=== PATIENT | female | born 1950 | race Caucasian/White ===

== ENCOUNTER 2019-01-18 12:52 | Inpatient (IN) ==
[2019-01-18] MEDS ORDERED: Sod Chloride 0.9% Inj 1,000 ML IV.SIG ONE (13:08)
[2019-01-18] MEDS ORDERED: Morphine Inj 4 MG/ML Vial IV.PUSH ONE (13:08)
--- NOTE | 2019-01-18 13:18 | ED ---
HPI General Chief Complaint: Extremity Injury, Lower Stated Complaint: Ankle Injury Time Seen by Provider: 01/18/19 13:05 Source: patient and EMS Mode of arrival: EMS Limitations: no limitations History of Present Illness HPI Narrative: Patient is a 68-year-old female presenting to the emerge department for evaluation of left lower leg injury. Patient was walking down steps when she lost her footing, she tripped twisting her ankle and falling down 2 steps. She reports hitting her head but denies any loss of consciousness. Patient arrives via EMS. She reports 8 out of 10 pain, constant , aching, throbbing. Somewhat alleviated with splinting. She denies any headache, dizziness, visual changes, nausea, vomiting. Patient states that she had no chest pain, dizziness or lightheadedness prior to falling. Past medical history significant for depression, she is not on any blood thinners. MD complaint: Reports ankle injury and fall Onset (ago): minute(s) Injury: Left: ankle Type of Injury: Reports unknown Place: Reports home Severity: severe Severity scale (1-10): 8 Relieving factors: immobilization Exacerbating factors: movement Context: Reports fall Associated symptoms: Reports snap/pop sensation, swelling and unable to bear weight Other symptoms: Reports none Treatments prior to arrival: Reports splint Related Data Home Medications Medication Instructions Recorded Confirmed escitalopram oxalate [Lexapro] 10 mg PO DAILY 01/18/19 01/18/19 Allergies Allergy/AdvReac Type Severity Reaction Status Date / Time No Known Allergies Allergy Verified 01/18/19 13:05 Review of Systems ROS: all other systems reviewed are negative PMFSH History History 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 Presenting in no acute distress. SKIN: Focused skin assessment warm/dry. HEAD: Atraumatic. Normocephalic. EYES: Pupils equal and round. No scleral icterus. No injection or drainage. ENT: No nasal bleeding or discharge. Mucous membranes pink and moist. NECK: Trachea midline. No JVD. CARDIOVASCULAR: Regular rate and rhythm. No murmur appreciated. RESPIRATORY: No accessory muscle use. Clear to auscultation. Breath sounds equal bilaterally. GASTROINTESTINAL: Abdomen soft, non-tender, nondistended. Hepatic and splenic margins not palpable. MUSCULOSKELETAL: Obvious deformity to left ankle, ecchymosis and mild edema noted to the medial aspect of the left ankle. 2+ dorsalis pedal pulse, brisk less than 3-second capillary refill, sensation is intact. Patient is able to move her toes. NEUROLOGICAL: Awake and alert. No obvious cranial nerve deficits. Motor grossly within normal limits. Normal speech. PSYCHIATRIC: Appropriate mood and affect; insight and judgment normal. Procedures Orthopedic Fracture Reduction Left ankle fracture dislocation: Time Out Performed: Yes Side: left Fracture Reduction Location: other (Left ankle lateral fracture dislocation) Analgesia: procedural sedation Technique: direct manipulation Post-Reduction Neuro Exam: intact Post-Reduction Vascular Exam: intact Splint Applied: Yes Patient Tolerated Procedure: well Course Initial Documented Vital Signs Temperature 98.7 F 01/18/19 13:03 Pulse Rate 56 L 01/18/19 13:03 Respiratory Rate 20 01/18/19 13:03 Blood Pressure 154/89 H 01/18/19 13:03 Pulse Oximetry 98 01/18/19 13:03 Last Documented Vital Signs Temperature 98.7 F 01/18/19 13:03 Pulse Rate 54 L 01/18/19 17:48 Respiratory Rate 18 01/18/19 17:48 Blood Pressure 122/58 L 01/18/19 17:48 Pulse Oximetry 95 01/18/19 17:48 Medical Decision Making TEREZA Attestation TEREZA supervised visit: Yes Attestation: I, Dr. Colmenares, have reviewed the advance practice practitioner's documentation and am in agreement, met with the patient face to face, made the diagnosis, and the medical decision making was done by me. See her note for further details. This is a 68-year-old female who is from [place], here for the winter months , here by ambulance for evaluation of significant left ankle pain after a slip and fall down a couple of steps. The patient struck the front of her head, however denies loss of consciousness. She mainly has pain in her left ankle. She is obvious deformity of the left ankle. There are no open wounds other that a superficial abrasion over the medial ankle where there is ecchymosis. The left foot and lower extremity are neurovascularly intact, and all compartments in the LLE are supple. There are no other obvious injuries on exam. Left ankle x-ray shows laterally displaced left ankle fracture/ dislocation that appears to be a trimalleolar fracture. Patient was consented for procedural sedation for closed reduction of this fracture dislocation by me. Sedation was performed by Dr. Long, and closed reduction of this fracture was performed by me. See procedure notes. Left foot is neurovascularly intact status post reduction, and Combs splint was placed. Postreduction x-rays ordered, and the TEREZA will contact the on-call orthopedic surgeon and will follow their recommendations. [facility] Narrative Medical decision making narrative: Patient is a 68-year-old female presenting with an obvious deformity to her left ankle after a trip and fall. Patient is neurovascularly intact, has no focal deficits on exam. Labs and imaging ordered and pending. Morphine and Zofran ordered for pain control. is at bedside. IV access was established, patient was placed on library monitor continuous pulse oximetry. Labs reviewed, no acute findings. The left ankle shows comminuted distal tibia and fibula fracture with dislocation. Please see my attending physician's dictation for procedural sedation and reduction. Postreduction films ordered. On-call orthopedic surgeon paged for recommendations. Per Dr. Wellington's GROUP EXERCISE CLASS INSTRUCTOR patient will be kept n.p.o. after midnight, he requested a CT scan of the ankle, likely OR tomorrow. Initially discussed admit with hospitalist, hospitalist recommended patient be admitted to orthopedic service. Which once multiple attempts to contact Orth O were unsuccessful. Patient was ultimately admitted to Dr. River. Medical Screen Exam Complete: Yes Emergency Medical Condition: Yes Differential Diagnosis Differential Diagnosis: Fracture versus sprain versus strain versus dislocation versus other Lab Data Lab results reviewed: Yes I reviewed the patient's lab results. Result diagrams: 01/18/19 13:15 01/18/19 13:15 Lab Results 01/18/19 01/18/19 01/18/19 Range/Units 13:15 13:15 13:15 WBC 9.0 (4.0-11.0) th/mm3 RBC 4.28 (4.00-5.30) mil/mm3 Hgb 14.0 (11.6-15.3) gm/dL Hct 40.4 (35.0-46.0) % MCV 94.5 (80.0-100.0) fL MCH 32.7 (27.0-34.0) pg MCHC 34.6 (32.0-36.0) % RDW 12.3 (11.6-17.2) % Plt Count 293 (150-450) th/mm3 MPV 7.4 (7.0-11.0) fL Neut % (Auto) 37.4 (16.0-70.0) % Lymph % (Auto) 43.9 (9.0-44.0) % [place] % (Auto) 9.4 H (0.0-8.0) % Eos % (Auto) 8.8 H (0.0-4.0) % Baso % (Auto) 0.5 (0.0-2.0) % Neut # (Auto) 3.4 (1.8-7.7) th/mm3 Lymph # (Auto) 4.0 (1.0-4.8) th/mm3 [place] # (Auto) 0.8 (0.0-0.9) th/mm3 Eos # (Auto) 0.8 H (0.0-0.4) th/mm3 Baso # (Auto) 0.0 (0.0-0.2) th/mm3 WBC Differential . Differential Comment Auto diff final PT 10.1 (9.8-11.6) sec INR 1.0 Ratio APTT 25.4 (23.4-31.7) sec Sodium 140 (136-145) meq/L Potassium 3.7 (3.5-5.1) meq/L Chloride 106 (98-107) meq/L Carbon Dioxide 28.6 (21.0-32.0) meq/L Anion Gap 5 (5-15) meq/L BUN 14 (7-18) mg/dL Creatinine 0.73 (0.50-1.00) mg/dL Estimated GFR 79 L (>89) mL/min Random Glucose 96 (74-106) mg/dL Calcium 8.8 (8.5-10.1) mg/dL Total Bilirubin 0.4 (0.2-1.0) mg/dL AST 25 (15-37) U/L ALT 38 (10-53) U/L Alkaline Phosphatase 69 (45-117) U/L Total Protein 7.7 (6.4-8.2) g/dL Albumin 3.8 (3.4-5.0) g/dL Imaging Data Radiologist's impression: Ankle X-Ray 01/18/19 13:08 CONCLUSION: Oblique fracture of the distal tibia with anterior medial dislocation of the majority articulating surface from the talus. Oblique angulated fracture involving the distal fibular metadiaphyseal region. Additional fracture fragment associated with the medial malleolus Head CT 01/18/19 13:08 CONCLUSION: No acute abnormality is identified. . . Tibia/Fibula X-Ray 01/18/19 13:08 CONCLUSION: 1. Comminuted fracture dislocation of the distal tibia and fibula, as above. Ankle X-Ray 01/18/19 15:06 CONCLUSION: 1. Status post reduction and casting of distal tibial and fibular fractures, as above. Ankle CT 01/18/19 16:37 CONCLUSION: 1. Oblique comminuted fracture of the distal fibular metaphysis with 9 mm of posterior displacement of the largest fragment. 2. There are oblique mildly comminuted fractures of the distal tibia involving the posterior malleolus and medial malleolus, as above. There are a few tiny fracture fragments in the medial tibiotalar joint likely related to the medial malleolus fracture. 3. Diffuse subcutaneous edema and soft tissue swelling. No displaced tendons are identified. Discharge Plan Discharge Disposition Patient Disposition: ED Admit(ED Internal Use Only) Discharge Condition Condition: Stable Discharge Order Discharge Orders: ED Use Only Admit Order (Routine); Ordered 01/18/19 Ordered By: Jessica Ghotra Discharge Details Diagnosis: Ankle fracture Physicians Team ED Provider: Javon Colmenares ED Midlevel Provider: Jessica Ghotra Attending Provider: Vlad Yates Other Providers: Raul Wellington Status ED Status: Admitted Patient
[2019-01-18 13:38] LABS: Baso % (Auto) 0.5 % (0.0-2.0); Eos # (Auto) 0.8 th/mm3 (0.0-0.4); Eos % (Auto) 8.8 % (0.0-4.0); Hematocrit 40.4 % (35.0-46.0); Lymph % (Auto) 43.9 % (9.0-44.0); Mean Corpuscular HGB Conc 34.6 % (32.0-36.0); Mean Corpuscular Hemoglobin 32.7 pg (27.0-34.0); Mean Corpuscular Volume 94.5 fL (80.0-100.0); Mean Platelet Volume 7.4 fL (7.0-11.0); Mono # (Auto) 0.8 th/mm3 (0.0-0.9); Mono % (Auto) 9.4 % (0.0-8.0); Neut # (Auto) 3.4 th/mm3 (1.8-7.7); Neut % (Auto) 37.4 % (16.0-70.0); Platelet Count 293 th/mm3 (150-450); Red Blood Count 4.28 mil/mm3 (4.00-5.30); Red Cell Distribution Width 12.3 % (11.6-17.2)
[2019-01-18 13:47] LABS: Activated Partial Thrombo Time 25.4 sec (23.4-31.7); Prothrombin Time 10.1 sec (9.8-11.6)
[2019-01-18 13:56] LABS: Alanine Aminotransferase 38 U/L (10-53); Albumin 3.8 g/dL (3.4-5.0); Anion Gap 5 meq/L (5-15); Aspartate Aminotransferase 25 U/L (15-37); Blood Urea Nitrogen 14 mg/dL (7-18); Calcium 8.8 mg/dL (8.5-10.1); Carbon Dioxide 28.6 meq/L (21.0-32.0); Chloride 106 meq/L (98-107); Glomerular Filtration Rate 79 mL/min (>89); Glucose,Random 96 mg/dL (74-106); Potassium 3.7 meq/L (3.5-5.1); Sodium 140 meq/L (136-145)
[2019-01-18 13:57] LABS: Alkaline Phosphatase 69 U/L (45-117); Total Protein 7.7 g/dL (6.4-8.2)
--- NOTE | 2019-01-18 14:43 | XR ---
EXAM DATE: 01/18/2019 2:28 PM EST AGE/SEX: 68 years / Female INDICATIONS: Left leg pain, fall down stairs. CLINICAL DATA: This is the patient's initial encounter. Patient reports that signs and symptoms have been present for 1 day and indicates a pain score of 10/10. MEDICAL/SURGICAL HISTORY: None. None. [place] [facility] [place]. . FINDINGS: Fracture of the medial malleolus and posterior malleolus. There is also fracture of the distal fibula . There is near complete shaft length medial dislocation of the distal tibia and fibula. Talar dome a ppears grossly intact. Diffuse soft tissue swelling. No radiopaque foreign bodies. CONCLUSION: 1. Comminuted fracture dislocation of the distal tibia and fibula, as above. Electronically signed by: Reji Martinez MD Board Certified Radiologist 01/18/2019 2:42 PM EST
--- NOTE | 2019-01-18 14:58 | XR ---
EXAM DATE: 01/18/2019 2:29 PM EST AGE/SEX: 68 years / Female INDICATIONS: Left ankle pain, fall down stairs. CLINICAL DATA: This is the patient's initial encounter. Patient reports that signs and symptoms have been present for 1 day and indicates a pain score of 10/10. MEDICAL/SURGICAL HISTORY: None. None. COMPARISON: No prior exams available for comparison. FINDINGS: There is a markedly comminuted fracture involving the distal tibia and the fibula. There is marked me dial angulation of both the tibial and fibular fractures. The fibular fracture is obliquely oriented. The majority of the tibial articulating surface is medially and anteriorly dislocated from the talar dome. The posterior tibial fragment is still articulating with the talus. The visualized calcaneus i s intact. Talonavicular joints unremarkable. CONCLUSION: Oblique fracture of the distal tibia with anterior medial dislocation of the majority articulating figueroa rface from the talus. Oblique angulated fracture involving the distal fibular metadiaphyseal region. Additional fracture fragment associated with the medial malleolus Electronically signed by: Inderjit Mancilla MD Board Certified Radiologist 01/18/2019 2:57 PM EST
--- NOTE | 2019-01-18 15:30 | XR ---
EXAM DATE: 01/18/2019 3:26 PM EST AGE/SEX: 68 years / Female INDICATIONS: Post reduction. CLINICAL DATA: This is the patient's initial encounter. Patient reports that signs and symptoms have been present for 1 day and indicates a pain score of 6/10. MEDICAL/SURGICAL HISTORY: None. None. COMPAR[place]: [facility] [place]IBIA FIBULA LEFT 2V, 01/18/2019. . FINDINGS: Interval casting and reduction of the distal tibia and fibula. There is significantly improved alignm ent with persistent mild prominence of the medial joint space and continued anterior dislocation. The re is persistent posterior displacement of the posterior malleolus fracture fragments. Remainder of t he exam is unchanged. CONCLUSION: 1. Status post reduction and casting of distal tibial and fibular fractures, as above. Electronically signed by: Reji Martinez MD Board Certified Radiologist 01/18/2019 3:29 PM EST
[2019-01-18] MEDS ORDERED: Morphine Sulfate Inj 2 MG/ML Vial IV.PUSH ONE (15:52)
[2019-01-18] MEDS ORDERED: Sod Chloride 0.9% Inj 1,000 ML IV.SIG SCH (16:00)
--- NOTE | 2019-01-18 17:27 | CT ---
EXAM DATE: 01/18/2019 5:21 PM EST AGE/SEX: 68 years / Female INDICATIONS: Trauma, fall. CLINICAL DATA: This is the patient's initial encounter. Patient reports that signs and symptoms have been present for 1 day and indicates a pain score of 0/10. MEDICAL/SURGICAL HISTORY: None. None. RADIATION DOSE: 59.40 CTDI (mGy) ;Tabletop exam COMPARISON: No prior exams available for comparison. TECHNIQUE: CT of the head without contrast. Using automated exposure control and adjustment of the mA and/or kV according to patient size, radiation dose was kept as low as reasonably achievable to ob tain optimal diagnostic quality images. DICOM format image data is available electronically for revi ew and comparison. FINDINGS: Cerebrum: The ventricles are normal. No midline shift, mass lesion, hemorrhage or acute infarction. No extraaxial fluid collections are seen. Posterior Fossa: The cerebellum and brainstem demonstrate no acute abnormality. The 4th ventricle is midline. The cerebellopontine angle is within normal limits. Extracranial: The visualized sinuses are clear. Skull: The calvaria is intact. No skull fracture. CONCLUSION: No acute abnormality is identified. . . Electronically signed by: Denny Rai MD Board Certified Radiologist 01/18/2019 5:26 PM EST
--- NOTE | 2019-01-18 17:33 | CT ---
EXAM DATE: 01/18/2019 5:22 PM EST AGE/SEX: 68 years / Female INDICATIONS: Trauma, fall. Left ankle fracture. CLINICAL DATA: This is the patient's initial encounter. Patient reports that signs and symptoms have been present for 1 day and indicates a pain score of 10/10. MEDICAL/SURGICAL HISTORY: None. None. RADIATION DOSE: 7.29 CTDI (mGy) COMPARISON: [facility], ANKLE LIMITED LEFT 2V, 01/18/2019. . TECHNIQUE: Multiple contiguous axial images were acquired using a multirow detector CT scanner witho ut contrast. Multiplanar reconstruction was performed in the sagittal and coronal planes. Using aut omated exposure control and adjustment of the mA and/or kV according to patient size, radiation dose was kept as low as reasonably achievable to obtain optimal diagnostic quality images. DICOM format i mage data is available electronically for review and comparison. FINDINGS: There is an oblique fracture of the distal tibial metaphysis extending through the base of the electrical repairer ior malleolus and into the tibiotalar joint. The main fracture fragment is displaced posteriorly by 5 mm. A transverse fracture through the base of the medial malleolus is identified with displacement o f the major fracture fragment by 4 mm. There are a few tiny comminuted fracture fragments in the medi al aspect of the tibiotalar joint. The distal fibula is also fractured with an oblique mildly comminu kia displaced fracture through the distal tibial metaphysis. Major fracture fragment is displaced pos teriorly by 9 mm. Overall, ankle mortise does not appear widened. The tarsal bones are intact. There is severe diffuse subcutaneous edema with soft tissue swelling and hemorrhage adjacent to the distal fibular fracture. The peroneal longus and brevis tendons are still located posterior to the distal fi bula and are not displaced. No entrapped or displaced tendons are appreciated. Distal Achilles tendon does not appear thickened or torn. No radiopaque foreign body is identified. CONCLUSION: 1. Oblique comminuted fracture of the distal fibular metaphysis with 9 mm of posterior displacement of the largest fragment. 2. There are oblique mildly comminuted fractures of the distal tibia involving the posterior malleol us and medial malleolus, as above. There are a few tiny fracture fragments in the medial tibiotalar j oint likely related to the medial malleolus fracture. 3. Diffuse subcutaneous edema and soft tissue swelling. No displaced tendons are identified. Electronically signed by: Denny Rai MD Board Certified Radiologist 01/18/2019 5:32 PM EST
[2019-01-18] MEDS ORDERED: Bisacodyl 10 MG Supp RECTAL PRN (18:12)
[2019-01-18] MEDS ORDERED: Acetaminophen 325 MG Tablet PO PRN (18:12)
--- NOTE | 2019-01-18 18:49 | P.HPIM ---
History of Present Illness Primary Care Physician: Main Hale History of Present Illness: 68 yo F with h/o Anxiety who presented after a mechanical fall and sustained lt ankle fracture. ER physician d/w orthopedics and patient is to have surgery. Patient reports she was walking down 2 steps, she tripped and twisted on ankle and fell. She started experiencing pain immediately. EMS was called and patient brought to ER. Patient denies palpitations, dizziness,lightheadedness, or syncope. No chest pain or shortness of breath, no exertional symptoms. ROS is negative. Patient has no known medical problems. She had a bone density exam 2 years ago which was normal. Inpatient Certification Inpatient Certification: I certify that the inpatient services were ordered in accordance with Medicare regulations governing the order. This includes certification that hospital inpatient services are reasonable and necessary and in the case of services not specified as inpatient-only under 42 CFR 419.22(n), that they are appropriately provided as inpatient services in accordance to with the 2-midnight benchmark under 43 CFR 412.3(e) Review of Systems Review of Systems: all other systems reviewed are negative [facility] Medical History Medical History Anxiety (Acute) Surgical History Surgical History History of appendectomy (Acute) Previous back surgery (Acute) Social History Social History Substance History: No History of Abuse Second Hand Smoke Exposure: No Smoking Status: Never smoker How Often Do You Have a Drink Containing Alcohol: 4 or more times a week Recent Travel in [facility] within the Last 8 Weeks: No Recent Out of Country Travel within the Last 8 Weeks: No Immunization History Tetanus Immunization: >5 Years Medications and Allergies Allergies Allergy/AdvReac Type Severity Reaction Status Date / Time No Known Allergies Allergy Verified 01/18/19 13:05 Home Medications Medication Instructions Recorded Confirmed Type escitalopram oxalate [Lexapro] 10 mg PO DAILY 01/18/19 01/18/19 History Active Medications: Active Medications Acetaminophen (Tylenol) 650 mg PO Q4H PRN PRN Reason: Temp > 100.4 Al Hydroxide/Mg Hydroxide (Milk Of Magnesia Liq) 30 ml PO Q12H PRN PRN Reason: Mild Constipation Bisacodyl (Dulcolax Supp) 10 mg RECTAL DAILY PRN PRN Reason: SEVERE CONSITIPATION Lactulose (Lactulose Liq) 30 ml PO DAILY PRN PRN Reason: SEVERE CONSITIPATION Ondansetron HCl (Zofran Inj) 4 mg IV.PUSH Q6H PRN PRN Reason: NAUSEA OR VOMITING Senna/Docusate Sodium (Magalis-Colace) 1 tab PO BID CARYN Sennosides (Senokot) 17.2 mg PO Q12H PRN PRN Reason: Moderate Constipation Sodium Chloride (Ns Flush) 2 ml IV.FLUSH BID CARYN Sodium Chloride (Ns Flush) 2 ml IV.FLUSH PRN PRN PRN Reason: FLUSH AFTER USING IV ACCESS Physical Exam Vital signs: Vital Signs 01/18/19 13:03 01/18/19 13:35 01/18/19 15:10 Temperature 98.7 F Pulse Rate 56 L 53 L Respiratory Rate 20 16 17 Blood Pressure 154/89 H 154/89 H Pulse Oximetry 98 95 100 01/18/19 15:30 01/18/19 17:48 Temperature Pulse Rate 52 L 54 L Respiratory Rate 16 18 Blood Pressure 133/62 122/58 L Pulse Oximetry 98 95 Intake & Output 01/17/19 01/18/19 01/18/19 18:59 06:59 18:59 Intake Total 1999 Balance 1999 Weight 68.946 kg Intake: IV 1999 NS Inj 1,000 ML @ 1000 mls/hr 1999 IV.SIG BOLUS CARYN Rx#:[id number] Narrative: GENERAL:middle aged lady, not in distress, laying in bed. HEENT:not pale,anicteric CARDIOVASCULAR: Regular rate and rhythm without murmurs, gallops, or rubs. RESPIRATORY: Clear to auscultation. Breath sounds equal bilaterally. No wheezes , rales, or rhonchi. GASTROINTESTINAL: Abdomen soft, non-tender, nondistended. Normal active bowel sounds MUSCULOSKELETAL: Extremities without clubbing, cyanosis, or edema.Lt leg splint in place. left toes with good capillary refill. NEURO: Alert & Oriented x4 to person, place, time, situation. Results Labs CBC & Chem 7: 01/18/19 13:15 01/18/19 13:15 Imaging Impressions Ankle X-Ray 01/18/19 13:08 CONCLUSION: Oblique fracture of the distal tibia with anterior medial dislocation of the majority articulating surface from the talus. Oblique angulated fracture involving the distal fibular metadiaphyseal region. Additional fracture fragment associated with the medial malleolus Head CT 01/18/19 13:08 CONCLUSION: No acute abnormality is identified. . . Tibia/Fibula X-Ray 01/18/19 13:08 CONCLUSION: 1. Comminuted fracture dislocation of the distal tibia and fibula, as above. Ankle X-Ray 01/18/19 15:06 CONCLUSION: 1. Status post reduction and casting of distal tibial and fibular fractures, as above. Ankle CT 01/18/19 16:37 CONCLUSION: 1. Oblique comminuted fracture of the distal fibular metaphysis with 9 mm of posterior displacement of the largest fragment. 2. There are oblique mildly comminuted fractures of the distal tibia involving the posterior malleolus and medial malleolus, as above. There are a few tiny fracture fragments in the medial tibiotalar joint likely related to the medial malleolus fracture. 3. Diffuse subcutaneous edema and soft tissue swelling. No displaced tendons are identified. Caprini VTE Risk Assessment Caprini VTE Risk Assessment: No/Low Risk (score <= 1) Caprini Risk Assessment Model: Point Value = 1 Point Value = 2 Point Value = 3 Point Value = 5 Age 41-60 Minor surgery BMI > 25 kg/m2 Swollen legs Varicose veins or History of unexplained or recurrent spontaneous Oral contraceptives or hormone replacement Sepsis (< 1 month) Serious lung disease, including pneumonia (< 1 month) Abnormal pulmonary function Acute myocardial infarction Congestive heart failure (< 1 month) History of inflammatory bowel disease Medical patient at bed rest Age 61-74 Arthroscopic surgery Major open surgery (> 45 min) Laparoscopic surgery (> 45 min) Malignancy Confined to bed (> 72 hours) Immobilizing plaster cast Central venous access Age >= 75 History of VTE Family history of VTE Factor V Leiden Prothrombin [id number] Lupus anticoagulant Anticardiolipin antibodies Elevated serum homocysteine Heparin-induced thrombocytopenia Other congenital or acquired thrombophilia Stroke (< 1 month) Elective arthroplasty Hip, pelvis, or leg fracture Acute spinal cord injury (< 1 month) Prophylaxis Regimen: Total Risk Factor Score Risk Level Prophylaxis Regimen 0-1 Low Early ambulation 2 Moderate Order ONE of the following: *Sequential Compression Device (SCD) *Heparin 5000 units SQ BID 3-4 Higher Order ONE of the following medications: *Heparin 5000 units SQ TID *Enoxaparin/Lovenox 40 mg SQ daily (WT < 150 kg, CrCl > 30 mL/min) *Enoxaparin/Lovenox 30 mg SQ daily (WT < 150 kg, CrCl > 10-29 mL/min) *Enoxaparin/Lovenox 30 mg SQ BID (WT < 150 kg, CrCl > 30 mL/min) AND/OR *Sequential Compression Device (SCD) 5 or more Highest Order ONE of the following medications: *Heparin 5000 units SQ TID (Preferred with Epidurals) *Enoxaparin/Lovenox 40 mg SQ daily (WT < 150 kg, CrCl > 30 mL/min) *Enoxaparin/Lovenox 30 mg SQ daily (WT < 150 kg, CrCl > 10-29 mL/min) *Enoxaparin/Lovenox 30 mg SQ BID (WT < 150 kg, CrCl > 30 mL/min) AND *Sequential Compression Device (SCD) Assessment and Plan Plan 68 yo F with h/o anxiety who presented s/p mechanical fall, found to have lt ankle fracture. she is for surgery, has good functional status, has no medical illnesses. There is no contraindication to planned surgery. Pain control prn for now. NPO after midnight. continue home Lexapro for anxiety. DVT ppx.
[2019-01-18] MEDS: Morphine Inj 4 MG/ML Vial IV.PUSH PRN ×2 (18:55→22:33)
[2019-01-18] MEDS: Senna/Docusate Sodium 8.6/50 MG Tablet PO SCH (22:33)
[2019-01-19] MEDS: Morphine Inj 4 MG/ML Vial IV.PUSH PRN ×3 (02:12→19:42)
--- NOTE | 2019-01-19 07:26 | MB ---
cc: Raul Wellington MD DATE: 01/18/2019 CHIEF COMPLAINT: Left ankle pain. HISTORY OF PRESENT ILLNESS: This is a 68-year-old female with a history of anxiety who presented to the emergency department today after a mechanical fall. The patient states she was going down 2 steps when she tripped and twisted her left ankle. The patient fell to the ground and had immediate pain. The patient was unable to ambulate. The patient was brought to the emergency department via EMS. The patient does report hitting her head, but denies any loss of consciousness. The patient denies any previous injury to the left ankle. The patient denies any tingling or numbness. REVIEW OF SYSTEMS: Negative x 12 except for what is stated in the HPI. PAST MEDICAL HISTORY: Includes anxiety. PAST SURGICAL HISTORY: Includes appendectomy and lumbar spine laminectomy. SOCIAL HISTORY: The patient denies tobacco use. The patient does report drinking wine daily. FAMILY HISTORY: The patient states her mother of an aneurysm. The patient's father from respiratory complications. ALLERGIES: THE PATIENT HAS NO KNOWN ALLERGIES. MEDICATIONS: The patient takes Lexapro 10 mg by mouth daily. PHYSICAL EXAMINATION: VITAL SIGNS: Pulse 54, respirations 18, blood pressure 122/58, pulse oximetry 95% on room air. GENERAL: The patient is alert and oriented and in no acute distress. The patient is resting in bed with her by her side. HEAD: Atraumatic and normocephalic. SKIN: Warm and dry. EYES: PERRLA. EARS, NOSE AND THROAT: The patient has pink moist mucous membranes. There is no nasal drainage or discharge. NECK: The patient's trachea is midline and neck is supple. CARDIOVASCULAR: The patient has 2+ radial pulses. The patient has a 2+ pedal pulse in the right lower extremity. The patient had good capillary refill with the left foot. RESPIRATORY: The patient has symmetric chest wall rise and nonlabored breathing. ABDOMEN: The patient's abdomen is nondistended and nontender. MUSCULOSKELETAL: The patient moves the bilateral upper extremities within normal limits and has no tenderness to palpation. The patient has normal movement of the right lower extremity and no tenderness to palpation. The patient has no tenderness to the left knee and left hip and has good range of motion of these joints. The patient currently has her left ankle immobilized with a splint. The patient had good sensation to light touch about the toes. There is no significant swelling to the toes. The patient is able to move her toes x 5. NEUROLOGIC: The patient is alert and oriented x 3 with no obvious cranial nerve deficits. PSYCHOSOCIAL: The patient has appropriate mood and affect. LABORATORY DATA: Taken on 01/18/2019 show a white blood cell count of 9, hemoglobin 14, hematocrit 40.4, platelets 293. INR 1. Creatinine 0.73, glucose 96. RADIOLOGY: X-ray of the left ankle, 2 views, on 01/18/2019 reads as oblique fracture of the distal tibia with anterior medial dislocation of the majority of the articulating surface from the talus. Oblique angulated fracture involving the distal fibular metadiaphyseal region. Additional fracture fragments associated with the medial malleolus. I did review these images and agree with the radiologist's interpretation. X-ray of the tibia and fibula left side, 2 views, on 01/18/2019 reads as comminuted fracture dislocation of the distal tibia and fibula. I did review these images and agree with the radiologist's interpretation. CT of the left ankle without contrast on 01/18/2019 reads as oblique comminuted fracture of the distal fibular metaphysis with 9 mm of posterior displacement of the largest fragment. There are oblique mildly comminuted fractures of the distal tibia involving the posterior malleolus and medial malleolus as above. There are few tiny fracture fragments in the medial tibiotalar joint, likely related to the medial malleolus fracture. Diffuse subcutaneous edema and soft tissue swelling with no displacement of tendons identified. I did review these images and agree with the radiologist's interpretation. IMPRESSION: Left ankle trimalleolar fracture with dislocation. MEDICAL DECISION MAKING: I took the time to discuss the diagnosis in detail with the patient and her today. Based on the review of her imaging, I do feel the patient requires surgical intervention. We did discuss this in detail today. The patient understands the risks and benefits of surgery as well as what to expect with postoperative rehabilitation. We did discuss timeframes for recovery. We did discuss the length of time required for immobilization postoperatively. The patient understands she will need to be n.p.o. after midnight tonight. The patient will remain in her splint for the left lower extremity. The patient will remain nonweightbearing at this time. The plan will be to take the patient to the OR tomorrow. I have reviewed the above impression and plan of care with Dr. Wellington and he agrees with this documentation. Dictated by ROOPA Waterman MD DILLON Norton/giancarlo , 07:44 PM , 07:59 PM
[2019-01-19] MEDS ORDERED: Sodium Chlor 0.9% Inj 500 ML IV.CONT ONE (08:30)
[2019-01-19] MEDS ORDERED: Metoprolol Tartrate 25 MG Tablet PO ONE (08:30)
[2019-01-19] MEDS ORDERED: Chlorhexidine Gluconate 2% 1 Pack (2 Cloths) TOPICAL ONE (08:30)
[2019-01-19] MEDS: Senna/Docusate Sodium 8.6/50 MG Tablet PO SCH ×2 (09:16→21:23)
[2019-01-19] MEDS: Escitalopram 10 MG Tablet PO SCH (09:16)
[2019-01-19] MEDS ORDERED: Bupivacaine 0.5% Inj 50 ML MDV Vial ONE (12:05)
--- NOTE | 2019-01-19 12:24 | P.PNIM ---
Subjective Interval history: seen with at bedside- pre op area states here visiting from [place] baseline- [facility] all ADL no bleeding tendencies - per patient trip on a piece of rug and fell down 2 step - state some slight pain Physical Exam Vital signs: Vital Signs 01/18/19 13:03 01/18/19 13:35 01/18/19 15:10 Temperature 98.7 F Pulse Rate 56 L 53 L Respiratory Rate 20 16 17 Blood Pressure 154/89 H 154/89 H Pulse Oximetry 98 95 100 01/18/19 15:30 01/18/19 17:48 01/18/19 20:00 Temperature 98.6 F Pulse Rate 52 L 54 L 61 Respiratory Rate 16 18 17 Blood Pressure 133/62 122/58 L 124/58 L Pulse Oximetry 98 95 94 L 01/18/19 23:45 01/19/19 04:00 01/19/19 08:00 Temperature 98.4 F 98.4 F 98.6 F Pulse Rate 62 67 66 Respiratory Rate 18 18 15 Blood Pressure 144/64 H 113/57 L 118/66 Pulse Oximetry 93 L 93 L 94 L Intake & Output 01/18/19 01/19/19 01/19/19 18:59 06:59 18:59 Intake Total 1999 240 / 240 Balance 1999 240 / 240 Weight 68.946 kg 77.7 kg Intake: IV 1999 NS Inj 1,000 ML @ 1000 mls/hr 1999 IV.SIG BOLUS CARYN Rx#:[id number] Oral 240 / 240 Other: # Voids 1 Date of Last Bowel Movement 01/18/19 01/18/19 # Bowel Movements 0 Weight On Admission 68.94 kg Narrative: awake and alert, no acute distress, appears slightly anxious anicteric neck supple lungs-clear regular rhythm abdomen-soft nonrtneder left LE- elastic dressing in place Results Labs CBC & Chem 7: 01/18/19 13:15 01/18/19 13:15 Imaging Imaging: Impressions Ankle X-Ray 01/18/19 13:08 CONCLUSION: Oblique fracture of the distal tibia with anterior medial dislocation of the majority articulating surface from the talus. Oblique angulated fracture involving the distal fibular metadiaphyseal region. Additional fracture fragment associated with the medial malleolus Head CT 01/18/19 13:08 CONCLUSION: No acute abnormality is identified. . . Tibia/Fibula X-Ray 01/18/19 13:08 CONCLUSION: 1. Comminuted fracture dislocation of the distal tibia and fibula, as above. Ankle X-Ray 01/18/19 15:06 CONCLUSION: 1. Status post reduction and casting of distal tibial and fibular fractures, as above. Ankle CT 01/18/19 16:37 CONCLUSION: 1. Oblique comminuted fracture of the distal fibular metaphysis with 9 mm of posterior displacement of the largest fragment. 2. There are oblique mildly comminuted fractures of the distal tibia involving the posterior malleolus and medial malleolus, as above. There are a few tiny fracture fragments in the medial tibiotalar joint likely related to the medial malleolus fracture. 3. Diffuse subcutaneous edema and soft tissue swelling. No displaced tendons are identified. Assessment and Plan Plan 68 years old female- here vising from [place] with h/o anxiety, no toher medical consitionds Left trimalleolar fracture with dislocation S/P mechanical fall, - for surgery today - PT consult post procedure - Pain control prn History of anxiety disorder - continue on lexapro 10 mg daily DC Planning- patient here vising from [place] DVT prophylaxis - will defer to orthopedics surgery service Progress Note: Quality VTE Deep Vein Thrombosis/Pulmonary Embolism Present on Admission: No
[2019-01-19] MEDS ORDERED: Glycopyrrolate Inj 1 MG/5 ML Syringe IV.PUSH ONE (12:40)
[2019-01-19] MEDS ORDERED: Lidocaine PF 1% Inj 5 ML Syringe OTHER ONE (12:40)
[2019-01-19] MEDS ORDERED: Neostigmine Inj 5 MG/5 ML Syringe IV.PUSH ONE (12:40)
[2019-01-19] MEDS ORDERED: Phenylephrine/NS 1000 MCG/10ML Syringe IV.PUSH ONE (12:40)
[2019-01-19] MEDS ORDERED: ceFAZolin 2 GM Premix Inj 2 GM/50 ML PIGGYBACK IV.SIG ONE (13:45)
[2019-01-19] MEDS ORDERED: Bisacodyl 10 MG Supp RECTAL PRN (14:29)
[2019-01-19] MEDS ORDERED: Morphine Inj 4 MG/ML Vial IV.PUSH PRN (14:29)
[2019-01-19] MEDS ORDERED: Aluminum/Magnesium/Simethacone Susp 30 ML UDC PO PRN (14:29)
[2019-01-19] MEDS ORDERED: Post-op Orders (for Pharmacy) OTHER STA (14:29)
--- NOTE | 2019-01-19 14:34 | XR ---
EXAM DATE: 01/19/2019 2:28 PM EST AGE/SEX: 68 years / Female INDICATIONS: ORIF left ankle fracture. CLINICAL DATA: This is the patient's subsequent encounter. Patient reports that signs and symptoms h ave been present for 2 days and indicates a pain score of Nonresponsive. MEDICAL/SURGICAL HISTORY: Non-responsive. Non-responsive. COMPARISON: [facility] [place], CT ANKLE LEFT W/O CONTRAST, 01/18/2019. . FINDINGS: Intraoperative OEC images of the left ankle show sideplate and osseous screws securing the distal fib jacques. Multiple osseous screws secure the distal tibia. Fracture fragments are in excellent anatomic al ignment. Latter-Day of the ankle mortise. CONCLUSION: Successful open reduction and internal fixation of the complex tib-fib/ankle fracture. Electronically signed by: Ashok Trujillo MD Board Certified Radiologist 01/19/2019 2:32 PM EST
--- NOTE | 2019-01-19 14:36 | P.OP ---
Preoperative Diagnosis: Left ankle trimalleolar fracture dislocation Postoperative Diagnosis: Same Date of procedure: 01/19/19 Procedure: Left ankle open reduction and internal fixation of trimalleolar ankle fracture with fixation of the lip Anesthesia: ALEX Surgeon: Raul Wellington MD Orange Picker Machine Operator: ROOPA Chin The surgical procedure was assisted by my Advanced Registered Nurse Practitioner. My RAILCAR CARPENTER presence was necessary throughout this case for the manipulation and positioning of the surgical extremity. My RAILCAR CARPENTER was assisting me throughout the duration of this procedure. The skill set of an Advance Registered Nurse Practitioner was medically necessary to complete this procedure. During the surgical case, the director surgical was working at the back table and the Advance Registered Nurse Practitioner was directly assisting me. Operation and Findings: Justification for the procedure: The patient has a fracture dislocation of her ankle. She had a closed reduction which helped reduce the ankle but was still subluxed posteriorly. Preoperative CT scanning was ordered and reviewed. I discussed with the patient the risks and benefits of surgical management. She understood that we may not be able to move forward with definitive fixation and that we were contemplating external fixation depending on intraoperative findings of the skin. We discussed that this is a serious condition effecting this patient's extremity. Nonoperative and operative options were discussed and reviewed. Potential consequences of both of these options were reviewed. The risks and benefits of surgical management have been discussed in detail. The risks of surgery include, but are not limited to, injury to nerves, blood vessels, bleeding, infection, non-healing; loss of range on motion, dysfunction or weakness of the associated joints; blood clots, pneumonia, stroke, heart attack, and . Tourniquet time: 0 minutes at 250 mmHg of pressure Estimated blood loss: 20 cc The patient received intravenous vancomycin and Ancef. After the appropriate anesthesia was administered, the patient's leg was prepped and draped in the usual sterile fashion. There were some very small scattered fracture blisters on the medial and posterior aspect of the ankle. The compartments were soft. There is mild to moderate swelling on the lateral aspect of the ankle. There was some skin injury on the medial aspect of the ankle with some thickening of the skin and redness which is likely from a pressure effect from the medial mall fracture dislocation. The skin was still intact in that area but this area could be a problem as far as skin breakdown in the future due to the traumatic significant contusion of the skin in that region. Overall, we did feel that we could proceed with a formal ORIF of the ankle but there is still some increased risk to the skin. We did have consideration for performing an external fixation device with staged procedure but we did feel comfortable moving forward with the formal ORIF today. We made a standard incision over the lateral aspect of the ankle. We then dissected through the deep fascia down to the fracture site. The edges of the fracture were identified. Hematoma was evacuated and the fracture was irrigated. The fracture was anatomically reduced with a reduction clamp, verified both visually and via fluoroscopy. A 2.7 lag screw was placed from anterior to posterior obliquely in standard fashion with good fixation of the fracture site. We then applied a pre-contoured Synthes lateral malleolus plate over the fracture. We initially secured the plate using a non-locking screw in the oblong screw hole. This gave nice compression of the plate to the bone. We then secured the fracture with multiple distal and proximal locking screws. We made an incision on the medial aspect of the ankle and placed 2 guidewires in a parallel fashion up the medial malleolus. Note that we were able to avoid that area of significant pressure effect of the skin. The medial malleolus remained anatomic during this procedure. We measured the appropriate screws. 2 individual Synthes 4.0 stainless steel partially threaded, long thread, cannulated screws were placed. Both had good purchase. The fracture remained in excellent position. On evaluating the posterior malleolus, we felt that the fracture encompassed greater than 25% of articular surface. This was especially evident on the preoperative CT scan. the posterior malleolus was anatomically reduced. We made 2 small stab incisions anteriorly. We bluntly dissected to the anterior tibia. Under fluoroscopic guidance we placed to guidewires avoiding intra- articular penetration. We verified good position. We drilled the anterior cortex. 2 individual 4.0 partially-threaded stainless steel screws were placed with good purchase. We took final fluoroscopic imaging of the ankle, including an AP, lateral, and mortise view. The fracture and the mortise were anatomic. We found no intra- articular penetration of the screws. The patient had full range of motion of the ankle with no crepitus. No instability was noted. We irrigated the incisions thoroughly. We then closed the deep fascia as much as possible with 0 Vicryl. Skin was closed on both sides with 2-0 Vicryl followed by 3-0 nylon. The leg was dressed and a splint was applied. The postoperative plan is for nonweightbearing, and DVT prophylaxis with aspirin.
[2019-01-19] MEDS ORDERED: fentaNYL Citrate Inj 100 MCG/2 ML Ampul ONE (15:27)
[2019-01-19] MEDS ORDERED: Zolpidem Tartrate 5 MG Tablet PO PRN (21:00)
[2019-01-19] MEDS: Sod Chloride 0.9% Inj 1,000 ML IV.CONT SCH (21:14)
[2019-01-19] MEDS: ceFAZolin Inj 1 GM in Sodium Chlor 0.9% Inj 100 ML IV.SIG SCH (21:22)
[2019-01-19] MEDS: Multivitamin/Minerals Therapeutic Tablet PO SCH (21:23)
[2019-01-20] MEDS: ceFAZolin Inj 1 GM in Sodium Chlor 0.9% Inj 100 ML IV.SIG SCH ×2 (02:23→08:31)
[2019-01-20] MEDS: Sod Chloride 0.9% Inj 1,000 ML IV.CONT SCH (03:05)
--- NOTE | 2019-01-20 07:21 | P.PNOP ---
Subjective Interval history: The patient is resting comfortably in bed in no acute distress. The patient denies any pain to the left ankle. Physical Exam Vital signs: Vital Signs 01/19/19 08:00 01/19/19 15:18 01/19/19 15:30 Temperature 98.6 F 98.1 F Pulse Rate 66 94 H 89 Respiratory Rate 15 14 14 Blood Pressure 118/66 128/62 127/61 Pulse Oximetry 94 L 96 93 L 01/19/19 15:45 01/19/19 16:00 01/19/19 16:13 Temperature 98.1 F Pulse Rate 86 87 Respiratory Rate 14 15 Blood Pressure 127/55 L 124/61 Pulse Oximetry 92 L 92 L 93 L 01/19/19 16:37 01/19/19 20:17 01/19/19 23:52 Temperature 98.3 F 98.0 F 97.5 F L Pulse Rate 80 69 66 Respiratory Rate 17 17 Blood Pressure 125/72 133/59 L 152/67 H Pulse Oximetry 95 94 L 95 01/20/19 04:00 Temperature 97.6 F Pulse Rate 59 L Respiratory Rate 17 Blood Pressure 125/61 Pulse Oximetry 95 Intake & Output 01/19/19 01/20/19 01/20/19 18:59 06:59 18:59 Intake Total 1050 / 1050 560 / 560 Output Total 150 / 150 Balance 900 / 900 560 / 560 Intake: IV 1050 / 1050 200 / 200 LR 1000 mL Inj 1,000 ML @ 30 1000 / 1000 mls/hr IV.CONT .Q24H ONE Rx#: [id number] Ancef 2 GM Premix Inj 2 gm In 50 / 50 50 ml @ 100 mls/hr IV.SIG ONCE ONE Rx#:[id number] Ancef Inj 1 GM In NS Inj 100 ML 200 / 200 @ 200 mls/hr IV.SIG Q6H [facility] Rx #:[id number] Oral 360 / 360 Output: Estimated Blood Loss 150 / 150 Other: # Voids 3 Date of Last Bowel Movement 01/18/19 01/18/19 # Bowel Movements 0 Narrative: The patient's splint and dressing are clean, dry, and intact. The patient has brisk cap refill x5. There is good sensation to light touch x5 distally. The patient moves her toes without difficulty. Results - Labs CBC & Chem 7: 01/18/19 13:15 01/18/19 13:15 - Imaging Impressions Ankle X-Ray 01/19/19 00:00 CONCLUSION: Successful open reduction and internal fixation of the complex tib-fib/ankle fracture. - Procedures Left ankle open reduction and internal fixation of trimalleolar ankle fracture with fixation of the lip Assessment and Plan - Assessment and Plan POD #1: Left ankle open reduction and internal fixation of trimalleolar ankle fracture with fixation of the lip 1. Nonweightbearing on left lower extremity. 2. [Aspirin] for DVT prophylaxis. 3. Ice as needed for swelling. 4. Stable per ortho for discharge to [home health] today. 5. The patient will follow up with Dr. Wellington and/or ROOP[facility] Fonatine as previously scheduled. 6. The patient will maintain her splint.
[2019-01-20] MEDS: Multivitamin/Minerals Therapeutic Tablet PO SCH (08:30)
[2019-01-20] MEDS: Senna/Docusate Sodium 8.6/50 MG Tablet PO SCH (08:30)
[2019-01-20] MEDS: Escitalopram 10 MG Tablet PO SCH (08:30)
--- NOTE | 2019-01-20 10:08 | P.PNIM ---
Subjective Interval history: seen with family at bedside supportive looking forward to going home today exercises sheet - spouse feels confident that they can do it pain controlled Physical Exam Vital signs: Vital Signs 01/19/19 15:18 01/19/19 15:30 01/19/19 15:45 Temperature 98.1 F Pulse Rate 94 H 89 86 Respiratory Rate 14 14 14 Blood Pressure 128/62 127/61 127/55 L Pulse Oximetry 96 93 L 92 L 01/19/19 16:00 01/19/19 16:13 01/19/19 16:37 Temperature 98.1 F 98.3 F Pulse Rate 87 80 Respiratory Rate 15 Blood Pressure 124/61 125/72 Pulse Oximetry 92 L 93 L 95 01/19/19 20:17 01/19/19 23:52 01/20/19 04:00 Temperature 98.0 F 97.5 F L 97.6 F Pulse Rate 69 66 59 L Respiratory Rate 17 17 17 Blood Pressure 133/59 L 152/67 H 125/61 Pulse Oximetry 94 L 95 95 01/20/19 08:13 Temperature 98.4 F Pulse Rate 60 Respiratory Rate 18 Blood Pressure 134/62 Pulse Oximetry 95 Intake & Output 01/19/19 01/20/19 01/20/19 18:59 06:59 18:59 Intake Total 1050 / 1050 560 / 560 Output Total 150 / 150 Balance 900 / 900 560 / 560 Intake: IV 1050 / 1050 200 / 200 LR 1000 mL Inj 1,000 ML @ 30 1000 / 1000 mls/hr IV.CONT .Q24H ONE Rx#: [id number] Ancef 2 GM Premix Inj 2 gm In 50 / 50 50 ml @ 100 mls/hr IV.SIG ONCE ONE Rx#:[id number] Ancef Inj 1 GM In NS Inj 100 ML 200 / 200 @ 200 mls/hr IV.SIG Q6H [facility] Rx #:[id number] Oral 360 / 360 Output: Estimated Blood Loss 150 / 150 Other: # Voids 3 Date of Last Bowel Movement 01/18/19 01/18/19 01/18/19 # Bowel Movements 0 Narrative: awake and alert, no distress anciteric lungs-clear regular rhythm abdomen-soft, good bowel sounds extremities Left LE- elastic dressing in place Results Labs CBC & Chem 7: 01/18/19 13:15 01/18/19 13:15 Imaging Imaging: Impressions Ankle X-Ray 01/19/19 00:00 CONCLUSION: Successful open reduction and internal fixation of the complex tib-fib/ankle fracture. Procedures Procedures: Left ankle open reduction and internal fixation of trimalleolar ankle fracture with fixation of the lip Assessment and Plan Plan 68 years old female- [place]ing [place] with h/o anxiety, no toher medical consitionds Left trimalleolar fracture with dislocation S/P ORIF 01/19 S/P mechanical fall, - PT saw patient- instructed on exercises - Pain control prn History of anxiety disorder - continue on lexapro 10 mg daily DC Planning- patient here vising from [place] DVT prophylaxis -ASA bid Home today- DME- requested- [facility] with leg elevator and FWW OP ff up with orthopedics Progress Note: Quality VTE Deep Vein Thrombosis/Pulmonary Embolism Present on Admission: No
[2019-01-20 13:23] VITALS: BP 114/55; PULSE 69; RESP 19; TEMP 97.8; O2SAT 92
== END 2019-01-20 15:34 | disposition home or self-care (01) | DRG 494 ==
LOC: NEPE 12:52 → NEDA 18:05 → N06 23:34
PROVIDERS: ADMIT Internal Medicine; ATTEND Internal Medicine
PROC: ORIFANK (2019-01-19 12:40)
CPT/HCPCS: 27810; 70450; 73590; 73600; 73610; 73700; 76000; 80053; 85025; 85610; 85730; 90761; 90774; 90775; 90776; 90784; 94150; 94770; 96361; 96374; 96375; 96376; 97162; 99285; C1713; C8952; J0131; J0690; J1100; J2250; J2270; J2370; J2405; J2704; J2710; J3010; J3370; J7030; J7120